=== PATIENT | female | born 1990 | race Caucasian/White ===

== ENCOUNTER 2019-08-06 12:49 | Emergency (ER) | payer OTHER ==
[~2019-08-06] VITALS: Ht 160 cm; Wt 63.5 kg
== END 2019-08-06 15:00 | disposition home or self-care (01) ==
LOC: ER 12:49
DX: M79.641 Pain in right hand (principal); S66.811A Strain of other specified muscles, fascia and tendons at wrist and hand level, right hand, initial encounter